=== PATIENT | female | born 1965 | race Caucasian/White ===

== ENCOUNTER 2016-12-04 16:29 | Inpatient (IN) | payer BC ==
[2016-12-04] VITALS (12 sets, daily range): BP systolic 123–195; BP diastolic 73–112
[~2016-12-04] VITALS: Ht 170.2 cm; Wt 98.0 kg
--- NOTE | ~2016-12-04 | EKG ---
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 : 1965 Requested By: Darius Valles Order Number: [id number] MD: Bobby Shane Measurements Intervals [place] Rate: 104 P: 52 AR: 154 QRS: 31 QRSD: 87 T: 2 QT: 401 QTc: 528 Interpretive Statements Sinus tachycardia Nonspecific ST and T-wave abnormality Compared to ECG 05/12/2016 13:48:24 T-wave abnormality now present Prolonged QT interval now present Atrial premature complex(es) no longer present Electronically Signed On 12-05-2016 8:06:21 CDT by Bobby Shane [email or web address] <ELECTRONICALLY SIGNED> By: Bobby Shane MD, [facility] 12/05/16 0806 06 180 Bobby Shane MD, [facility] /EPI
[~2016-12-04 16:29] MED LIST: AMLODIPINE BESY10 MG PO; GLYBURIDE 5 MG T5 M1 PO; JANUVIA100 MG PO; NORCO 5-325 TA1 EACH PO; PHENERGAN 25 MG25 M1 PO; PRILOSEC OTC20 MG PO; PROMS25 WY RECTAL; SIMVASTATIN40 MG PO; ZOFRAN ODT4 MG PO
[2016-12-04 17:02] LABS: ABSOLUTE NEUTROPHILS 10.5 thou/uL (1.4-8.2); BASOPHILS 0.4 % (0.0-2.0); HEMOGLOBIN 15.3 gm/dL (12.0-15.0); LYMPHOCYTES 10.1 % (24.0-44.0); MCH 29.1 pg (26.0-34.0); MCV 85.6 fL (80.0-100.0); MONOCYTES 2.6 % (1.0-8.0); PLATELET COUNT 271 thou/uL (150-400); POLYS 86.9 % (36.0-66.0); RBC 5.26 mil/uL (4.20-5.00); RDW 14.1 % (10.5-14.5); WBC 12.1 thou/uL (4.0-11.0)
[2016-12-04 17:06] LABS: MANUAL DIFF NO
[2016-12-04 17:14] LABS: ABG SAMPLE TYPE ARTERIAL; BE(vivo) -4.5 mmol/L (-2 to +3); HCO3 19.3 mmol/L (22.0-26.0); LACTATE 3.13 mmol/L (0.5-2.0); O2(CT) 18.7 mL/dL (15.0-23.0); O2Hb 87.2 % (92.0-98.0); PCO2 32.3 mmHg (35.0-45.0); pH 7.394 (7.360-7.450); sO2 89.1 % (92.0-98.0); tCO2 20.3 mmol/L (24.0-30.0)
[2016-12-04 17:15] LABS: PO2 55.5 mmHg (80.0-100.0)
[2016-12-04 17:16] LABS: STICK SITE R.RADIAL
[2016-12-04 17:18] LABS: URINE BILIRUBIN NEGATIVE (Negative); URINE BLOOD 2+ (Negative); URINE COLOR YELLOW; URINE GLUCOSE-RANDOM* 3+ (Negative); URINE KETONES 2+ (Negative); URINE NITRITE NEGATIVE (Negative); URINE PROTEIN (DIPSTICK) 2+ (Negative); URINE UROBILINOGEN 0.2 E.U./dl (0.2-1.0)
[2016-12-04 17:23] LABS: ALBUMIN 3.5 g/dL (3.4-5.0); CALCIUM 9.8 mg/dL (8.5-10.1); CREATININE 1.2 mg/dL (0.6-1.0); POTASSIUM 4.2 mmol/L (3.5-5.1); TOTAL BILIRUBIN 0.4 mg/dL (<0.1-1.0); TOTAL PROTEIN 8.5 g/dL (6.4-8.2)
[2016-12-04 17:29] LABS: CASTS None Seen /LPF (None Seen); SQUAMOUS 4-10 Moderate /LPF (0-3)
[2016-12-04 17:30] LABS: BACTERIA 1-9 Few /HPF (None Seen); CRYSTALS None Seen /LPF (None Seen); URINE RBC 0-2 Rare /HPF (0-2); URINE WBC 0-5 Rare /HPF (0-5)
[2016-12-04 19:16] LABS: ALBUMIN 3.5 g/dL (3.4-5.0); CREATININE 1.2 mg/dL (0.6-1.0); PHOSPHORUS 6.5 mg/dL (2.5-4.9); POTASSIUM 4.4 mmol/L (3.5-5.1); TOTAL BILIRUBIN 0.4 mg/dL (<0.1-1.0); TOTAL PROTEIN 8.5 g/dL (6.4-8.2)
[2016-12-04 21:06] LABS: ABG SAMPLE TYPE ARTERIAL; BE(vivo) -1.2 mmol/L (-2 to +3); HCO3 23.8 mmol/L (22.0-26.0); LACTATE 1.54 mmol/L (0.5-2.0); O2(CT) 18.2 mL/dL (15.0-23.0); O2Hb 93.6 % (92.0-98.0); PO2 78.8 mmHg (80.0-100.0); pH 7.382 (7.360-7.450); sO2 95.5 % (92.0-98.0); tCO2 25.1 mmol/L (24.0-30.0)
[2016-12-04 21:09] LABS: STICK SITE R.RADIAL
[2016-12-04 23:26] LABS: CALCIUM 8.4 mg/dL (8.5-10.1); POTASSIUM 4.2 mmol/L (3.5-5.1)
[2016-12-04 23:29] LABS: ALBUMIN 2.8 g/dL (3.4-5.0); MAGNESIUM 1.8 mg/dL (1.8-2.4); PHOSPHORUS 5.1 mg/dL (2.5-4.9)
[2016-12-05] VITALS (31 sets, daily range): BP systolic 102–160; BP diastolic 62–92
[2016-12-05 05:10] LABS: GLYCOHEMOGLOBIN (HGB A1C) 14.8 % (4.8-5.6)
[2016-12-05 05:26] LABS: HEMATOCRIT 37.5 % (37.0-47.0); MCH 27.9 pg (26.0-34.0); MCHC 33.1 g/dL (28.0-37.0); MCV 84.3 fL (80.0-100.0); RBC 4.45 mil/uL (4.20-5.00); RDW 14.1 % (10.5-14.5); WBC 13.3 thou/uL (4.0-11.0)
[2016-12-05 05:31] LABS: HEMOGLOBIN 12.4 gm/dL (12.0-15.0)
[2016-12-05 05:38] LABS: ALBUMIN 2.7 g/dL (3.4-5.0); CALCIUM 8.5 mg/dL (8.5-10.1); CREATININE 0.9 mg/dL (0.6-1.0); MAGNESIUM 1.9 mg/dL (1.8-2.4); PHOSPHORUS 4.7 mg/dL (2.5-4.9); POTASSIUM 4.1 mmol/L (3.5-5.1); TOTAL BILIRUBIN 0.3 mg/dL (<0.1-1.0); TOTAL PROTEIN 6.6 g/dL (6.4-8.2)
[2016-12-06 03:51] VITALS: BP 130/72
[2016-12-06 05:40] LABS: ABSOLUTE NEUTROPHILS 4.4 thou/uL (1.4-8.2); BASOPHILS 0.6 % (0.0-2.0); EOSINOPHILS 0.9 % (0.0-3.0); HEMATOCRIT 33.2 % (37.0-47.0); HEMOGLOBIN 11.4 gm/dL (12.0-15.0); LYMPHOCYTES 39.4 % (24.0-44.0); MCH 29.2 pg (26.0-34.0); MCHC 34.3 g/dL (28.0-37.0); MCV 85.2 fL (80.0-100.0); MONOCYTES 5.6 % (1.0-8.0); PLATELET COUNT 192 thou/uL (150-400); POLYS 53.5 % (36.0-66.0); RDW 14.2 % (10.5-14.5); WBC 8.3 thou/uL (4.0-11.0)
[2016-12-06 05:41] LABS: MANUAL DIFF NO
[2016-12-06 07:20] VITALS: BP 152/91
[2016-12-06 09:45] LABS: CREATININE 0.7 mg/dL (0.6-1.0)
[2016-12-06 11:28] VITALS: BP 158/102
[2016-12-06 15:35] VITALS: BP 167/88
[2016-12-06 19:52] VITALS: BP 188/107
[2016-12-07] VITALS (7 sets, daily range): BP systolic 150–185; BP diastolic 92–107
[2016-12-07 01:07] LABS: GLYCOHEMOGLOBIN (HGB A1C) 14.3 % (4.8-5.6)
[2016-12-08 04:32] VITALS: BP 183/100
[2016-12-08 07:19] VITALS: BP 153/88
[2016-12-08] MEDS ORDERED: LISINOPRIL20 MG PO (08:15)
[2016-12-08] MEDS ORDERED: LANTUS100 UNIT/M SUBQ (08:15)
[2016-12-08] MEDS ORDERED: HUMALOG100 UNIT/1 SUBQ ×2 (08:15→11:07)
[2016-12-08] MEDS ORDERED: SIMVASTATIN40 MG PO (08:15)
[2016-12-08] MEDS ORDERED: PRILOSEC OTC20 MG PO (08:15)
[2016-12-08] MEDS ORDERED: PROMS25 WY RECTAL (08:15)
[2016-12-08] MEDS ORDERED: HYDRALAZINE 2525 MG PO (08:15)
[2016-12-08] MEDS ORDERED: AMLODIPINE BESY10 MG PO (09:30)
[2016-12-08] MEDS ORDERED: [UNRECOGNIZED DRUG - SUPPLY] (09:42)
[2016-12-08] MEDS ORDERED: [UNRECOGNIZED DRUG - OTHER] (09:42)
[2016-12-08] MEDS ORDERED: ACCUCHECK MACHINE (09:42)
[2016-12-08 10:21] VITALS: BP 153/88
[2016-12-08 11:08] LABS: URINE BILIRUBIN NEGATIVE (Negative); URINE BLOOD NEGATIVE (Negative); URINE COLOR YELLOW; URINE GLUCOSE-RANDOM* 1+ (Negative); URINE KETONES NEGATIVE (Negative); URINE LEUKOCYTES-REFLEX TRACE (Negative); URINE PROTEIN (DIPSTICK) 1+ (Negative); URINE SPECIFIC GRAVITY 1.015 (1.003-1.035)
[2016-12-08 11:17] LABS: CASTS None Seen /LPF (None Seen); CRYSTALS None Seen /LPF (None Seen); SQUAMOUS 0-3 Few /LPF (0-3); URINE RBC None Seen /HPF (0-2); URINE WBC-REFLEX 6-15 Few /HPF (0-5); WBC CLUMPS Few (None Seen)
== END 2016-12-08 11:55 | disposition home or self-care (01) | DRG 638 ==
LOC: ER 16:29 → ICU 18:09 → EROBS 18:09 → ICU 19:21 → 4W 12-05 17:42
PROVIDERS: Internal Medicine; Nurse Practitioner; Physician Assistant
DX: E13.10 Other specified diabetes mellitus with ketoacidosis without coma (principal); N17.9 Acute kidney failure, unspecified; I10 Essential (primary) hypertension; E78.5 Hyperlipidemia, unspecified; Z91.14 Patient's other noncompliance with medication regimen; Z79.4 Long term (current) use of insulin; Z79.899 Other long term (current) drug therapy; Z83.3 Family history of diabetes mellitus
CPT/HCPCS: 10045; 10078

== ENCOUNTER 2017-08-07 00:15 | Emergency (ER) | payer BC ==
[~2017-08-07] VITALS: Ht 170.2 cm; Wt 102.1 kg
[~2017-08-07 00:15] MED LIST changes: +ACCUCHECK MACHINE; +HUMALOG100 UNIT/1 SUBQ; +HYDRALAZINE 2525 MG PO; +LANTUS100 UNIT/M SUBQ; +LISINOPRIL20 MG PO; +[UNRECOGNIZED DRUG - OTHER]; +[UNRECOGNIZED DRUG - SUPPLY]
[2017-08-07 00:59] LABS: ABSOLUTE NEUTROPHILS 8.2 thou/uL (1.4-8.2); BASOPHILS 0.7 % (0.0-2.0); EOSINOPHILS 0.1 % (0.0-3.0); HEMATOCRIT 36.7 % (37.0-47.0); HEMOGLOBIN 12.6 gm/dL (12.0-15.0); MCH 29.1 pg (26.0-34.0); MCHC 34.3 g/dL (28.0-37.0); MCV 84.9 fL (80.0-100.0); MONOCYTES 6.4 % (1.0-8.0); PLATELET COUNT 204 thou/uL (150-400); POLYS 79.8 % (36.0-66.0); RBC 4.33 mil/uL (4.20-5.00); RDW 13.8 % (10.5-14.5); WBC 10.3 thou/uL (4.0-11.0)
[2017-08-07] MEDS ORDERED: ZOFRAN ODT4 MG DISSOLVE (01:08)
[2017-08-07 01:09] LABS: ANION GAP 12 mmol/L (7-16); BUN 19 mg/dL (7-18); CALCIUM 9.3 mg/dL (8.5-10.1); CHLORIDE 99 mmol/L (98-107); CO2 28 mmol/L (21-32); GLUCOSE 229 mg/dL (74-106); POTASSIUM 3.6 mmol/L (3.5-5.1); SODIUM 139 mmol/L (136-145)
[2017-08-07 01:14] LABS: ALBUMIN 3.1 g/dL (3.4-5.0); DIRECT BILIRUBIN < 0.1 mg/dL (<0.1-0.3); LIPASE 66 U/L (73-393); SGOT 45 U/L (15-37); SGPT 32 U/L (30-65); TOTAL BILIRUBIN 0.4 mg/dL (<0.1-1.0); TOTAL PROTEIN 7.3 g/dL (6.4-8.2)
[2017-08-07 03:11] LABS: URINE BILIRUBIN NEGATIVE (Negative); URINE BLOOD 2+ (Negative); URINE CLARITY CLEAR; URINE COLOR YELLOW; URINE GLUCOSE-RANDOM* 1+ (Negative); URINE KETONES 3+ (Negative); URINE LEUKOCYTES-REFLEX NEGATIVE (Negative); URINE NITRITE-REFLEX NEGATIVE (Negative); URINE PROTEIN (DIPSTICK) 3+ (Negative); URINE SPECIFIC GRAVITY >= 1.030 (1.005-1.035); URINE UROBILINOGEN 0.2 E.U./dl (0.2-1.0)
[2017-08-07 03:21] LABS: COARSE GRANULAR CASTS 0-3 Few /LPF (None Seen); HYALINE CASTS 0-3 Few /LPF (None Seen); SQUAMOUS 4-10 Moderate /LPF (0-3)
[2017-08-07 03:22] LABS: BACTERIA-REFLEX 1-9 Few /HPF (None Seen); CRYSTALS None Seen /LPF (None Seen); MUCUS 0-3 Light strn/LPF (None Seen); URINE RBC 3-10 Few /HPF (0-2); URINE WBC-REFLEX 0-5 Rare /HPF (0-5)
[2017-08-07] MEDS ORDERED: ZOFRAN ODT4 MG PO (03:49)
[2017-08-07] MEDS ORDERED: PRILOSEC 20 MG20 MG PO (03:49)
[2017-08-07 04:05] VITALS: BP 157/83
== END 2017-08-07 04:10 | disposition home or self-care (01) ==
LOC: ER 00:15
PROVIDERS: Emergency Medicine
DX: R11.10 Vomiting, unspecified (principal); E86.0 Dehydration; K29.70 Gastritis, unspecified, without bleeding; E11.9 Type 2 diabetes mellitus without complications; I10 Essential (primary) hypertension; Z98.890 Other specified postprocedural states